=== PATIENT | male | born 1945 | race Caucasian/White ===

== ENCOUNTER 2018-11-22 09:50 | Day surgery (SDC) | payer OTHER ==
[~2018-11-22] VITALS: Ht 180.3 cm; Wt 81.7 kg
[~2018-11-22 09:50] MED LIST: AMBIEN CR12.5 MG PO; APAP500 PO; ASPIR 8181 MG PO; CIALIS2.5 MG PO; DEPO-TESTO100 MG/1 M IM; FISH OIL 1,001000 M2 PO; FLOMAX0.4 MG PO; NORVASC5 MG PO; PRILOSEC40 MG PO; PROSCAR 5MG TABL5 MG PO; TUMS PO; UNICOMPLEX M TA1 TA1 PO
[2018-11-22 11:00] VITALS: BP 115/81
--- NOTE | 2018-11-26 06:23 | O ---
[facility] [place] [address] OPERATIVE REPORT Name: GANESH CAICEDO Room #: DEP [facility].#: [id number] Admission: 11/22/18 Attend Phys: Ganesh Ross MD Discharge: 11/22/18 Date of : 47 Report #: [id number] THIS REPORT FOR: //name// CC: LEANN Mott DATE OF SERVICE: 11/22/2018 CLINICAL STAFF ANESTHESIOLOGIST: None. PREOPERATIVE DIAGNOSIS: Bilateral lower lid entropion. POSTOPERATIVE DIAGNOSIS: Bilateral lower lid entropion. OPERATION PERFORMED: Bilateral lower lid entropion repair. ANESTHESIA: Local with IV sedation. COMPLICATIONS: None. INDICATIONS FOR PROCEDURE: This patient has bilateral lower lid entropion with chronic irritation and discharge. The current procedures are being undertaken in order to improve the patient's level of comfort and visual function. Informed consent was obtained to include but not limited to the loss of vision, bleeding, infection, scarring, failure to improve the problem and need for further surgery. DESCRIPTION OF OPERATION: The patient was taken to the operating room, where 2% Xylocaine with epinephrine mixed with equal parts of 0.75% Marcaine with Wydase was administered transcutaneously and transconjunctivally to each lower lid and lateral canthal area. The patient was then prepped and draped in the usual sterile fashion. A Silva clamp was used to clamp the left lateral canthus, following which a sharp canthotomy and cantholysis were performed. Hemostasis was achieved with a monopolar cautery, as it was throughout the case. A tarsal strip was prepared laterally, removing the lash bearing portion of the redundant lid margin and the redundant tarsal plate. A transconjunctival dissection was then undertaken just inferior to the lower border of the tarsal plate. The lower lid retractors were disinserted from the inferior border of the tarsal plate. The lower lid retractors were then advanced and reattached to the anterior surface of the tarsal plate with mattress 5-0 chromic sutures passed transconjunctivally and secured in the infraciliary margin. The tarsal strip was then secured laterally with 2 interrupted 5-0 Prolene sutures. The subcutaneous structures and the skin were then closed with multiple interrupted 6-0 plain gut sutures so the lateral canthal angle was sharply reformed. The [address] [id number] OPERATIVE REPORT Name: GANESH CAICEDO Room #: DEP [facility]#: [id number] Admission: 11/22/18 Attend Phys: Ganesh Ross MD Discharge: 11/22/18 Date of : 47 Report #: [id number] wounds were then cleaned and dressed with ophthalmic antibiotic ointment. The patient was then transported to the recovery area, having tolerated the procedure well with no anesthetic or operative complications being noted. <ELECTRONICALLY SIGNED> By: Ganesh Ross MD 11/26/18 [id number] MD matt Curiel
== END 2018-11-22 12:40 | disposition home or self-care (01) ==
LOC: TBA 09:50 → OR 09:50 → TBA 09:56 → OR 12:40
DX: H02.005 Unspecified entropion of left lower eyelid (principal); H02.002 Unspecified entropion of right lower eyelid; I10 Essential (primary) hypertension; N40.0 Benign prostatic hyperplasia without lower urinary tract symptoms; E78.5 Hyperlipidemia, unspecified; K21.9 Gastro-esophageal reflux disease without esophagitis; Z98.41 Cataract extraction status, right eye; Z98.42 Cataract extraction status, left eye; Z98.890 Other specified postprocedural states; Z79.899 Other long term (current) drug therapy; Z79.82 Long term (current) use of aspirin
CPT/HCPCS: 50010; 50101; 50386; 50398; 51636; 56527; 56531; 62110; 62850; 70005